=== PATIENT | female | born 1965 | race Caucasian/White ===

== ENCOUNTER 2017-11-01 06:45 | Emergency (ER) | payer OTHER ==
[2017-11-01 06:57] VITALS: BP 128/74; PULSE 90; TEMP 98.2; BMI 24.1
--- NOTE | 2017-11-01 07:28 | PDOC ---
History of Present Illness - General Chief Complaint: Injury Stated Complaint: RT ANKLE PAIN Past History - Past Medical History COPD: No Psychiatric Problems: Yes (ANXIETY) - Suicide/Smoking/Psychosocial Hx Smoking History: Current every day smoker Number of Cigarettes Smoked Daily: 10 Information on smoking cessation initiated: Yes 'Breaking Loose' booklet given: 11/01/17 *Physical Exam - Vital Signs Last Vital Signs Temp Pulse Resp BP Pulse Ox 98.2 F 90 16 128/74 96 11/01/17 06:50 11/01/17 06:50 11/01/17 06:50 11/01/17 06:50 11/01/17 06:50 *DC/Admit/Observation/Transfer Diagnosis at time of Disposition: Right ankle sprain Qualifiers: Encounter type: initial encounter Involved ligament of ankle: unspecified ligament Qualified Code(s): S93.401A - Sprain of unspecified ligament of right ankle, initial encounter - Discharge Dispostion Disposition: HOME Condition at time of disposition: Stable Decision to Admit order: No - Referrals Referrals: Alvino Sen MD [Staff Physician] - - Patient Instructions Printed Discharge Instructions: Serious Ways to Stop Smoking, How to Prevent Falls, DI for Ankle Sprain - Post Discharge Activity
== END 2017-11-01 07:49 | disposition home or self-care (01) ==
LOC: FER 06:45
DX: S93.401A Sprain of unspecified ligament of right ankle, initial encounter (principal); X58.XXXA Exposure to other specified factors, initial encounter; Y93.89 Activity, other specified; Y92.9 Unspecified place or not applicable; F41.0 Panic disorder [episodic paroxysmal anxiety]; F17.210 Nicotine dependence, cigarettes, uncomplicated
CPT/HCPCS: 73610-TC-RT-FY; 99282-25

== ENCOUNTER 2020-06-11 14:27 | Emergency (ER) | payer OTHER ==
[2020-06-11 14:40] VITALS: BP 138/73; PULSE 86; TEMP 98; BMI 25.0
[2020-06-11] MEDS ORDERED: DIPHTH,PERTUSS(ACELL),TET 0.5 ML DISP.SYRIN IM ONE ×2 (15:18→15:20)
== END 2020-06-11 15:30 | disposition home or self-care (01) ==
LOC: FER 14:27
PROC: 0HQLXZZ Repair Left Lower Leg Skin, External Approach (ICD-10-PCS; principal; 2020-06-11)
PROC: 3E0234Z Introduction of Serum, Toxoid and Vaccine into Muscle, Percutaneous Approach (ICD-10-PCS; 2020-06-11)
DX: S81.012A Laceration without foreign body, left knee, initial encounter (principal)
CPT/HCPCS: 90471; 90715; 99284-25

== ENCOUNTER 2020-06-23 11:33 | Emergency (ER) | payer OTHER ==
[2020-06-23 11:39] VITALS: BP 117/59; PULSE 90; TEMP 98; BMI 25.0
== END 2020-06-23 12:18 | disposition home or self-care (01) ==
LOC: FER 11:33
DX: Z48.02 Encounter for removal of sutures (principal)
CPT/HCPCS: 99281-25

== ENCOUNTER 2020-12-05 06:06 | Day surgery (SDC) | payer SELFPAY ==
[2020-11-28 15:28] VITALS: BMI 25.0
[2020-12-05] MEDS ORDERED: PROPOFOL 20 ML ONE ×5 (07:03)
[2020-12-05] MEDS ORDERED: fentaNYL CITRATE 250 MCG/5 ML VIAL ONE (07:03)
[2020-12-05] MEDS ORDERED: ROCURONIUM BROMIDE 50 MG/5 ML SYRINGE ONE ×2 (07:03→10:18)
[2020-12-05] MEDS ORDERED: SUCCINYLCHOLINE CHLORIDE 200 MG/10 ML SYRINGE ONE (07:03)
[2020-12-05] MEDS ORDERED: MIDAZOLAM HCL 2 MG/2 ML SINGLE DOSE VIAL ONE (07:04)
[2020-12-05] MEDS ORDERED: SEVOFLURANE 250 ML BTL ONE (07:09)
[2020-12-05] MEDS ORDERED: SCOPOLAMINE HYDROBROMIDE 1 PATCH PATCH.TD72 ONE (07:30)
[2020-12-05] MEDS ORDERED: ePHEDrine SULFATE 50 MG/1 ML AMPULE ONE (08:50)
[2020-12-05] MEDS ORDERED: HYDROmorphone HCL/PF 1 MG/ML VIAL ONE ×2 (10:54)
[2020-12-05] MEDS ORDERED: NEOSTIGMINE METHYLSULFATE 0.5 MG/1 ML - 10 ML MDV ONE (12:31)
[2020-12-05] MEDS ORDERED: GLYCOPYRROLATE 0.2 MG/1 ML VIAL ONE (12:32)
[2020-12-05] MEDS ORDERED: NITROGLYCERIN 2% OINTMENT - 1GM PACKET TD ONE ×2 (13:15)
[2020-12-05] MEDS ORDERED: oxyCODONE HCL 5 MG TABLET PO PRN ×4 (13:32→13:35)
[2020-12-05] MEDS ORDERED: ONDANSETRON 4 MG/2 ML VIAL IVPB PRN (13:32)
[2020-12-05] MEDS ORDERED: ONDANSETRON 4 MG/2 ML VIAL IVPUSH PRN (13:35)
[2020-12-05] MEDS ORDERED: PROMETHAZINE HCL 25 MG/1 ML VIAL IVPUSH PRN (13:35)
[2020-12-05] MEDS ORDERED: LACTATED RINGERS SOLUTION 1,000 ML IV SCH (13:45)
[2020-12-05 15:29] VITALS: TEMP 97.5
[2020-12-05 17:21] VITALS: BP 102/74; PULSE 76
[2020-12-05] MEDS ORDERED: ESCITALOPRAM OXALATE PO SCH (22:00)
== END 2020-12-05 16:50 | disposition home or self-care (01) ==
LOC: FASU 06:06
PROVIDERS: ATTEND Plastic Surgery
PROC: 0H0V0ZZ Alteration of Bilateral Breast, Open Approach (ICD-10-PCS; principal; 2020-12-05 09:10)
DX: N62 Hypertrophy of breast (principal)
CPT/HCPCS: 88305-TC; 94760

== ENCOUNTER 2021-09-18 06:16 | Day surgery (SDC) | payer SELFPAY ==
[2021-09-11 15:31] VITALS: BMI 24.6
[2021-09-18] MEDS ORDERED: EPINEPHrine/PF 1 MG/1 ML (1:1,000) AMPULE ONE (07:22)
[2021-09-18] MEDS ORDERED: LIDOCAINE HCL 1%, 10 MG/ML (20ML VIAL) ONE ×2 (07:22→07:56)
[2021-09-18] MEDS ORDERED: HYDROmorphone HCL/PF 1 MG/ML VIAL ONE (07:46)
[2021-09-18] MEDS ORDERED: PROPOFOL 40 ML ONE (07:47)
[2021-09-18] MEDS ORDERED: ROCURONIUM BROMIDE 50 MG/5 ML SYRINGE ONE (07:47)
[2021-09-18] MEDS ORDERED: MIDAZOLAM HCL 2 MG/2 ML SINGLE DOSE VIAL ONE (07:47)
[2021-09-18] MEDS ORDERED: SUCCINYLCHOLINE CHLORIDE 200 MG/10 ML SYRINGE ONE (07:47)
[2021-09-18] MEDS ORDERED: ONDANSETRON 4 MG/2 ML VIAL ONE ×2 (07:49→10:48)
[2021-09-18] MEDS ORDERED: ceFAZolin SODIUM 1 GM VIAL ONE (07:49)
[2021-09-18] MEDS ORDERED: DEXAMETHASONE SOD PHOSPHATE 4 MG/1 ML VIAL ONE ×2 (07:49→10:48)
[2021-09-18] MEDS ORDERED: PROPOFOL 20 ML ONE (10:06)
[2021-09-18] MEDS ORDERED: ONDANSETRON 4 MG/2 ML VIAL IVPUSH PRN (11:08)
[2021-09-18] MEDS ORDERED: oxyCODONE HCL 5 MG TABLET PO PRN ×3 (11:08→11:10)
[2021-09-18] MEDS ORDERED: ONDANSETRON 4 MG/2 ML VIAL IVPB PRN (11:10)
[2021-09-18] MEDS ORDERED: LACTATED RINGERS SOLUTION 1,000 ML IV SCH (11:15)
[2021-09-18] MEDS ORDERED: ACETAMINOPHEN 500 MG TABLET (FP) ONE (12:46)
[2021-09-18 14:08] VITALS: TEMP 97.7
[2021-09-18 14:22] VITALS: PULSE 84; RESP 16
[2021-09-18 14:27] VITALS: BP 107/70
[2021-09-18] MEDS ORDERED: ESCITALOPRAM OXALATE PO SCH (22:00)
== END 2021-09-18 14:15 | disposition home or self-care (01) ==
LOC: FASU 06:16
PROVIDERS: ATTEND Plastic Surgery
PROC: 0H0V0ZZ Alteration of Bilateral Breast, Open Approach (ICD-10-PCS; principal; 2021-09-18 08:28)
PROC: 0J073ZZ Alteration of Back Subcutaneous Tissue and Fascia, Percutaneous Approach (ICD-10-PCS; 2021-09-18 08:28)
DX: L90.5 Scar conditions and fibrosis of skin (principal); Z98.890 Other specified postprocedural states; D17.1 Benign lipomatous neoplasm of skin and subcutaneous tissue of trunk
CPT/HCPCS: 94760